=== PATIENT | female | born 1950 | race Hispanic/Latino ===

== ENCOUNTER 2025-03-09 18:51 | Inpatient (IN) | payer MEDICARE ==
[~2025-03-09] VITALS: Ht 149.9 cm; Wt 60.1 kg
[2025-03-09] MEDS ORDERED: SODIUM CHLORIDE 0.9% 1000ML 1,000 ML IV SCH (20:00)
[2025-03-09] MEDS: ONDANSETRON HCL INJ 2MG/ML 2ML 2 MG/ML VIAL IV STA (20:32)
[2025-03-09] MEDS: SODIUM CHLORIDE 0.9% 1000ML 1,000 ML IV ONE (20:33)
[2025-03-09 21:02] LABS: BASOPHILS # (AUTO) 0.1 (0.0-0.1); BASOPHILS % 0.3 % (0.0-1.0); EOSINOPHILS # (AUTO) 0.1 (0.0-0.4); EOSINOPHILS % 0.5 % (0.0-6.0); HEMATOCRIT 40.6 % (34.2-44.1); HEMOGLOBIN 14.3 g/dL (12.0-16.0); LYMPHOCYTES # (AUTO) 1.6 (1.0-3.2); LYMPHOCYTES % 7.6 % (18.0-39.1); MEAN CORPUSCULAR HEMOGLOBIN 32.9 pg (28-32); MEAN CORPUSCULAR HGB CONC 35.2 g/dL (31-35); MEAN CORPUSCULAR VOLUME 93.5 fL (81-99); MONOCYTES % 9.6 % (4.4-11.3); NEUTROPHILS # (AUTO) 16.8 (2.1-6.9); NEUTROPHILS % 81.3 % (38.7-80.0); PLATELET COUNT 246 x10e3/uL (140-360); RED BLOOD COUNT 4.34 x10e6/uL (3.6-5.1); RED CELL DISTRIBUTION WIDTH 13.1 % (11.7-14.4); WHITE BLOOD COUNT 20.65 x10e3/uL (4.8-10.8)
[2025-03-09 21:21] LABS: ALBUMIN 2.6 g/dL (3.5-5.0); ALBUMIN/GLOBULIN RATIO 0.9 (0.8-2.0); ANION GAP 18.2 mmol/L (8-16); BILIRUBIN,TOTAL 0.7 mg/dL (0.2-1.2); CALCIUM 8.3 mg/dL (8.4-10.2); CREATININE, SERUM 1.59 mg/dL (0.57-1.11); TOTAL PROTEIN 5.6 g/dL (6.5-8.1)
[2025-03-09 21:26] LABS: CLARITY,URINE CLEAR (CLEAR); COLOR,URINE YELLOW (YELLOW); GLUCOSE, URINE NEGATIVE (NEGATIVE); KETONES,URINE NEGATIVE (NEGATIVE); LEUKOCYTE ESTERASE ,URINE TRACE (NEGATIVE); NITRITE,URINE NEGATIVE (NEGATIVE); PH,URINE 5.5 (5 - 7); PROTEIN,URINE DIPSTICK 2+ (NEGATIVE); URINE UROBILINOGEN 0.2 mg/dL (0.2 - 1)
[2025-03-09 21:27] LABS: BILIRUBIN,URINE MODERATE (NEGATIVE)
[2025-03-09 21:27] LABS: TROPONIN I 0.025 ng/mL (0-0.300)
[2025-03-09 21:29] LABS: BACTERIA,URINE FEW /HPF; EPITHELIAL CELLS,URINE MANY /LPF; RBC,URINE 0-5 /HPF (0-5)
[2025-03-09 21:34] LABS: POTASSIUM 3.2 mmol/L (3.5-5.1)
[2025-03-09 22:16] VITALS: PULSE 98; RESP 22; TEMP 98.7
[2025-03-09] MEDS: SODIUM CHLORIDE 0.9% 1000ML 1,000 ML IV SCH (22:55)
[2025-03-09] MEDS ORDERED: SODIUM CHLORIDE 0.9% 1000ML 1,000 ML IV ONE (23:00)
[2025-03-09] MEDS ORDERED: DEXTROSE 50% SYRINGE 50 ML IV PRN (23:15)
[2025-03-09] MEDS ORDERED: ONDANSETRON HCL INJ 2MG/ML 2ML 2 MG/ML VIAL IV PRN (23:49)
[2025-03-10] VITALS (8 sets, daily range): BP systolic 100–112; BP diastolic 55–67; PULSE 86–106; RESP 16–20; TEMP 97.7–98.6; O2SAT 93–100
[2025-03-10] MEDS: METRONIDAZOLE 500MG/NS 100ML 100 ML IV SCH (00:26)
[2025-03-10 03:25] LABS: BAND NEUTROPHILS % (MANUAL) 6 %; LYMPHOCYTES % (MANUAL) 5 % (19-48); MONOCYTES % (MANUAL) 4 % (3.4-9.0); NEUTROPHILS % (MANUAL) 85 % (40-74)
[2025-03-10 03:26] LABS: BURR CELLS SLIGHT
[2025-03-10 03:27] LABS: PLATELET ESTIMATE ADEQUATE; PLATELET MORPHOLOGY COMMENT NORMAL; RBC MORPHOLOGY COMMENT NORMAL
[2025-03-10 05:35] LABS: BASOPHILS # (AUTO) 0.1 (0.0-0.1); BASOPHILS % 0.5 % (0.0-1.0); EOSINOPHILS # (AUTO) 0.1 (0.0-0.4); EOSINOPHILS % 0.9 % (0.0-6.0); HEMATOCRIT 36.6 % (34.2-44.1); HEMOGLOBIN 12.6 g/dL (12.0-16.0); LYMPHOCYTES # (AUTO) 1.3 (1.0-3.2); LYMPHOCYTES % 7.7 % (18.0-39.1); MEAN CORPUSCULAR HEMOGLOBIN 32.8 pg (28-32); MEAN CORPUSCULAR HGB CONC 34.4 g/dL (31-35); MEAN CORPUSCULAR VOLUME 95.3 fL (81-99); MONOCYTES # (AUTO) 1.5 (0.2-0.8); NEUTROPHILS # (AUTO) 13.2 (2.1-6.9); NEUTROPHILS % 81.5 % (38.7-80.0); PLATELET COUNT 222 x10e3/uL (140-360); RED BLOOD COUNT 3.84 x10e6/uL (3.6-5.1); RED CELL DISTRIBUTION WIDTH 13.2 % (11.7-14.4); WHITE BLOOD COUNT 16.17 x10e3/uL (4.8-10.8)
[2025-03-10 06:06] LABS: ALBUMIN 2.1 g/dL (3.5-5.0); ALBUMIN/GLOBULIN RATIO 0.8 (0.8-2.0); ANION GAP 14.9 mmol/L (8-16); BILIRUBIN,TOTAL 0.4 mg/dL (0.2-1.2); CALCIUM 7.9 mg/dL (8.4-10.2); CREATININE, SERUM 1.02 mg/dL (0.57-1.11); TOTAL PROTEIN 4.6 g/dL (6.5-8.1)
[2025-03-10 06:08] LABS: POTASSIUM 2.9 mmol/L (3.5-5.1)
[2025-03-10] MEDS: INSULIN REGULAR, HUMAN 100 UNIT/1 ML SQ SCH (07:30)
[2025-03-10 10:27] LABS: LYMPHOCYTES % (MANUAL) 5 % (19-48); MONOCYTES % (MANUAL) 13 % (3.4-9.0); NEUTROPHILS % (MANUAL) 82 % (40-74); PLATELET ESTIMATE ADEQUATE; PLATELET MORPHOLOGY COMMENT NORMAL; RBC MORPHOLOGY COMMENT NORMAL
[2025-03-10] MEDS ORDERED: NEURONTIN300 MG PO (12:09)
[2025-03-10] MEDS ORDERED: DEXTROSE 50% SYRINGE 50 ML IV PRN (13:15)
[2025-03-10] MEDS ORDERED: BENZONATATE 100 MG CAP PO PRN (13:15)
[2025-03-10] MEDS ORDERED: HYDRALAZINE HCL 20 MG/ML VIAL IV PRN (13:15)
[2025-03-10] MEDS ORDERED: ALBUTEROL/IPRATROPIUM 3 ML NEB NEB PRN (13:15)
[2025-03-10] MEDS ORDERED: SIMETHICONE 80 MG CHEW PO PRN (13:15)
[2025-03-10] MEDS ORDERED: DOCUSATE SODIUM 100 MG CAP PO PRN (13:15)
[2025-03-10] MEDS ORDERED: MELATONIN 5 MG TABLET PO PRN (13:15)
[2025-03-10] MEDS ORDERED: DIPHENHYDRAMINE HCL 25 MG CAP PO PRN (13:15)
[2025-03-10] MEDS: GABAPENTIN 300 MG CAP PO SCH (13:23)
[2025-03-10] MEDS: POTASSIUM CHLORIDE 20 MEQ TAB CR PO ONE ×2 (13:24→16:30)
[2025-03-10] MEDS: ENOXAPARIN SOD INJ 40 MG/0.4 ML SYR SC SCH (18:03)
[2025-03-10 18:50] LABS: MAGNESIUM 1.7 MG/DL (1.3-2.1); POTASSIUM 3.9 mmol/L (3.5-5.1)
[2025-03-10 21:24] LABS: CDIFF AG QUIK CHEK **POSITIVE** (NEGATIVE); CDIFF TOX QUIK CHEK NEGATIVE (NEGATIVE)
[2025-03-10] MEDS: VANCOMYCIN HCL 125 MG CAPSULE PO ONE (22:26)
[2025-03-11] VITALS (8 sets, daily range): BP systolic 102–125; BP diastolic 59–70; PULSE 81–94; RESP 17–20; TEMP 97.7–98.9; O2SAT 95–100
[2025-03-11 05:16] LABS: BASOPHILS # (AUTO) 0.1 (0.0-0.1); BASOPHILS % 0.9 % (0.0-1.0); EOSINOPHILS # (AUTO) 0.3 (0.0-0.4); EOSINOPHILS % 1.9 % (0.0-6.0); HEMATOCRIT 34.2 % (34.2-44.1); HEMOGLOBIN 11.9 g/dL (12.0-16.0); LYMPHOCYTES # (AUTO) 1.2 (1.0-3.2); LYMPHOCYTES % 8.6 % (18.0-39.1); MEAN CORPUSCULAR HEMOGLOBIN 33.1 pg (28-32); MEAN CORPUSCULAR HGB CONC 34.8 g/dL (31-35); MEAN CORPUSCULAR VOLUME 95.3 fL (81-99); MONOCYTES # (AUTO) 1.1 (0.2-0.8); MONOCYTES % 7.8 % (4.4-11.3); NEUTROPHILS % 80.3 % (38.7-80.0); PLATELET COUNT 231 x10e3/uL (140-360); RED BLOOD COUNT 3.59 x10e6/uL (3.6-5.1); WHITE BLOOD COUNT 13.66 x10e3/uL (4.8-10.8)
[2025-03-11 05:50] LABS: CALCIUM 7.9 mg/dL (8.4-10.2); CREATININE, SERUM 0.75 mg/dL (0.57-1.11)
[2025-03-11] MEDS: VANCOMYCIN HCL 125 MG CAPSULE PO SCH (06:21)
[2025-03-11 08:01] LABS: EOSINOPHILS % (MANUAL) 4 % (0-7); LYMPHOCYTES % (MANUAL) 7 % (19-48); MONOCYTES % (MANUAL) 4 % (3.4-9.0); NEUTROPHILS % (MANUAL) 85 % (40-74); PLATELET ESTIMATE ADEQUATE; PLATELET MORPHOLOGY COMMENT NORMAL; RBC MORPHOLOGY COMMENT NORMAL
[2025-03-11] MEDS: PANTOPRAZOLE SOD 40 MG TABEC PO SCH (09:03)
[2025-03-11] MEDS: METRONIDAZOLE 500 MG TAB PO SCH (16:34)
[2025-03-11] MEDS: ACETAMINOPHEN 325 MG TAB PO PRN (21:21)
[2025-03-12] VITALS (8 sets, daily range): BP systolic 118–133; BP diastolic 62–72; PULSE 70–98; RESP 17–20; TEMP 97.4–98.3; O2SAT 96–100
[2025-03-12 06:12] LABS: BASOPHILS # (AUTO) 0.1 (0.0-0.1); EOSINOPHILS # (AUTO) 0.4 (0.0-0.4); EOSINOPHILS % 3.5 % (0.0-6.0); HEMATOCRIT 33.9 % (34.2-44.1); HEMOGLOBIN 11.7 g/dL (12.0-16.0); LYMPHOCYTES # (AUTO) 1.5 (1.0-3.2); LYMPHOCYTES % 12.8 % (18.0-39.1); MEAN CORPUSCULAR HEMOGLOBIN 32.6 pg (28-32); MEAN CORPUSCULAR HGB CONC 34.5 g/dL (31-35); MEAN CORPUSCULAR VOLUME 94.4 fL (81-99); MONOCYTES % 8.8 % (4.4-11.3); NEUTROPHILS # (AUTO) 8.6 (2.1-6.9); NEUTROPHILS % 73.3 % (38.7-80.0); PLATELET COUNT 243 x10e3/uL (140-360); RED BLOOD COUNT 3.59 x10e6/uL (3.6-5.1); RED CELL DISTRIBUTION WIDTH 12.9 % (11.7-14.4); WHITE BLOOD COUNT 11.68 x10e3/uL (4.8-10.8)
[2025-03-12 06:41] LABS: ANION GAP 12.2 mmol/L (8-16); CALCIUM 7.7 mg/dL (8.4-10.2); CREATININE, SERUM 0.6 mg/dL (0.57-1.11)
[2025-03-12 06:42] LABS: POTASSIUM 3.2 mmol/L (3.5-5.1)
[2025-03-12 15:12] LABS: EOSINOPHILS % (MANUAL) 2 % (0-7); LYMPHOCYTES % (MANUAL) 10 % (19-48); MONOCYTES % (MANUAL) 5 % (3.4-9.0); NEUTROPHILS % (MANUAL) 83 % (40-74); PLATELET ESTIMATE ADEQUATE; PLATELET MORPHOLOGY COMMENT NORMAL
[2025-03-12] MEDS: POTASSIUM CHLORIDE 20 MEQ TAB CR PO STA (15:37)
[2025-03-13] VITALS (11 sets, daily range): BP systolic 125–151; BP diastolic 56–73; PULSE 78–97; RESP 17–22; TEMP 97.9–98.4; O2SAT 95–100
[2025-03-13] MEDS: DICYCLOMINE HCL 20 MG TAB PO STA (04:04)
[2025-03-13 05:38] LABS: BASOPHILS # (AUTO) 0.2 (0.0-0.1); BASOPHILS % 1.2 % (0.0-1.0); EOSINOPHILS # (AUTO) 0.4 (0.0-0.4); EOSINOPHILS % 2.9 % (0.0-6.0); HEMATOCRIT 39.9 % (34.2-44.1); HEMOGLOBIN 13.9 g/dL (12.0-16.0); LYMPHOCYTES # (AUTO) 2.5 (1.0-3.2); LYMPHOCYTES % 18.9 % (18.0-39.1); MEAN CORPUSCULAR HEMOGLOBIN 32.8 pg (28-32); MEAN CORPUSCULAR HGB CONC 34.8 g/dL (31-35); MEAN CORPUSCULAR VOLUME 94.1 fL (81-99); MONOCYTES % 7.7 % (4.4-11.3); NEUTROPHILS # (AUTO) 8.9 (2.1-6.9); NEUTROPHILS % 68.4 % (38.7-80.0); PLATELET COUNT 322 x10e3/uL (140-360); RED BLOOD COUNT 4.24 x10e6/uL (3.6-5.1); RED CELL DISTRIBUTION WIDTH 12.9 % (11.7-14.4); WHITE BLOOD COUNT 13.01 x10e3/uL (4.8-10.8)
[2025-03-13 06:01] LABS: ANION GAP 16.9 mmol/L (8-16); CALCIUM 8.4 mg/dL (8.4-10.2); CREATININE, SERUM 0.65 mg/dL (0.57-1.11)
[2025-03-13 06:16] LABS: POTASSIUM 3.9 mmol/L (3.5-5.1)
[2025-03-13] MEDS: DICYCLOMINE HCL 20 MG TAB PO SCH (09:32)
[2025-03-14 04:00] VITALS: BP 141/78; PULSE 95; RESP 19; TEMP 97.9; O2SAT 100
[2025-03-14 06:11] LABS: BASOPHILS # (AUTO) 0.1 (0.0-0.1); BASOPHILS % 1.5 % (0.0-1.0); EOSINOPHILS # (AUTO) 0.4 (0.0-0.4); EOSINOPHILS % 5.7 % (0.0-6.0); HEMATOCRIT 33.2 % (34.2-44.1); HEMOGLOBIN 11.8 g/dL (12.0-16.0); LYMPHOCYTES # (AUTO) 1.5 (1.0-3.2); LYMPHOCYTES % 19.4 % (18.0-39.1); MEAN CORPUSCULAR HGB CONC 35.5 g/dL (31-35); MEAN CORPUSCULAR VOLUME 92.7 fL (81-99); MONOCYTES # (AUTO) 0.8 (0.2-0.8); MONOCYTES % 10.8 % (4.4-11.3); NEUTROPHILS # (AUTO) 4.6 (2.1-6.9); NEUTROPHILS % 61.3 % (38.7-80.0); PLATELET COUNT 248 x10e3/uL (140-360); RED BLOOD COUNT 3.58 x10e6/uL (3.6-5.1); RED CELL DISTRIBUTION WIDTH 12.6 % (11.7-14.4); WHITE BLOOD COUNT 7.52 x10e3/uL (4.8-10.8)
[2025-03-14 06:16] VITALS: PULSE 82; RESP 22; O2SAT 96
[2025-03-14 06:37] LABS: ANION GAP 14.1 mmol/L (8-16); BLOOD UREA NITROGEN < 5 mg/dL (7-26); CALCIUM 7.8 mg/dL (8.4-10.2); CARBON DIOXIDE 16 mmol/L (22-29); CHLORIDE 113 mmol/L (98-107); CREATININE, SERUM 0.56 mg/dL (0.57-1.11); EST GLOMERULAR FILTRATION RATE 96 ML/MIN (>=60); GLUCOSE 106 mg/dL (74-118); SODIUM 140 mmol/L (136-145)
[2025-03-14 06:40] LABS: POTASSIUM 3.1 mmol/L (3.5-5.1)
[2025-03-14 06:41] LABS: BUN/CREATININE RATIO 9 (6-25)
[2025-03-14 09:00] VITALS: BP 141/78; PULSE 82; RESP 22; TEMP 97.9; O2SAT 96
[2025-03-14] MEDS: POTASSIUM CHLORIDE 20 MEQ TAB CR PO PRN (09:12)
[2025-03-14 09:47] VITALS: BP 130/78; PULSE 93; RESP 18; TEMP 98.6; O2SAT 96
[2025-03-14] MEDS: LIDOCAINE 4% PATCH TP PRN (11:51)
[2025-03-14 12:52] VITALS: BP 125/71; PULSE 82; RESP 18; TEMP 98.6; O2SAT 99
[2025-03-14 14:00] VITALS: BP 134/65; PULSE 81; RESP 17; TEMP 98; O2SAT 99
[2025-03-14] MEDS ORDERED: METRONIDAZOLE500 MG PO (14:10)
[2025-03-14] MEDS: POTASSIUM CHLORIDE 20 MEQ TAB CR PO ONE (15:22)
== END 2025-03-14 18:18 | disposition home or self-care (01) | DRG 372 ==
LOC: ER 19:56 → ERHOLD 23:13 → MED/SURG2 03-10 00:01
PROVIDERS: ADMIT Internal Medicine; ATTEND Internal Medicine
DX: A04.72 Enterocolitis due to Clostridium difficile, not specified as recurrent (principal); N17.9 Acute kidney failure, unspecified; N39.0 Urinary tract infection, site not specified; I10 Essential (primary) hypertension; E11.9 Type 2 diabetes mellitus without complications; M19.90 Unspecified osteoarthritis, unspecified site; B96.20 Unspecified Escherichia coli [E. coli] as the cause of diseases classified elsewhere
CPT/HCPCS: 36415; 71045; 74176; 80048; 80053; 81001; 82550; 82948; 83605; 83630; 83690; 83735; 83993; 84132; 84484; 85025; 87040; 87045; 87086; 87177; 87186; 87324; 87449; 93005; 94799; 99284; J0692; J1650; J2405; J2470; J2543; J7030